=== PATIENT | female | born 1950 | race Two or more races ===

== ENCOUNTER 2021-05-13 21:22 | Emergency (ER) | payer OTHER ==
[~2021-05-13] VITALS: Ht 160 cm; Wt 76.2 kg
[2021-05-13] MEDS ORDERED: FORTAMET500 MG PO (21:30)
[2021-05-13] MEDS ORDERED: SYNTHROID75 MCG PO (21:30)
[2021-05-13] MEDS ORDERED: COZAAR100 MG PO (21:30)
[2021-05-13] MEDS ORDERED: CHILDREN'S ASPI81 MG PO (21:30)
[2021-05-13] MEDS ORDERED: LIPITOR40 M1 PO (21:31)
[2021-05-14] MEDS ORDERED: ACETAMINOPHEN500 M2 PO (01:28)
== END 2021-05-14 01:33 | disposition home or self-care (01) ==
LOC: ER 21:22
DX: B34.9 Viral infection, unspecified (principal); Z20.822 Contact with and (suspected) exposure to COVID-19